=== PATIENT | female | born 2005 | race Hispanic/Latino ===

== ENCOUNTER 2024-02-22 00:52 | Day surgery (SDC) | payer OTHER ==
[2024-02-22] MEDS ORDERED: hydrALAZINE 20 MG/ML VIAL SLOW IVP PRN (00:53)
[2024-02-22 01:04] VITALS: BMI 23.8
== END 2024-02-22 02:00 | disposition home or self-care (01) ==
LOC: CSHLD/OP 00:52
PROVIDERS: ATTEND Obstetrics & Gynecology
DX: O47.1 False labor at or after 37 completed weeks of gestation (principal); Z79.899 Other long term (current) drug therapy; Z3A.38 38 weeks gestation of pregnancy
CPT/HCPCS: 99283